=== PATIENT | female | born 1935 | race Caucasian/White ===

== ENCOUNTER 2021-05-12 15:13 | Emergency (ER) | payer MEDICARE, BC ==
[~2021-05-12] VITALS: Ht 152.4 cm; Wt 37.5 kg
--- NOTE | 2021-05-12 16:11 | RAD ---
Three-view right shoulder and two-view right humerus dated 05/12/2021. No comparison available. CLINICAL INDICATION: Pain. FINDINGS: 2 views the right shoulder show a mildly comminuted fracture of the greater tuberosity of the proxima l right humerus. There is some mild displacement of fracture fragments. Possible extension to the les ser tuberosity. The humeral neck is intact. The mid and distal humeral shaft is intact. Mild hypertro phic change of the AC joint with mild degenerative change of the glenohumeral joint. No displaced rib fracture. IMPRESSION: Comminuted, mildly displaced fracture of the proximal right humerus. Electronically signed by: Mitch Avendano MD (05/12/2021 4:08 PM) [id number]
--- NOTE | 2021-05-12 16:13 | RAD ---
Single view pelvis, two-view right hip and two-view right femur dated 05/12/2021. No comparison available. Clinical data indication: Pain after fall. FINDINGS: Single AP view pelvis shows normal bony alignment. No displaced fracture. Mild hypertrophic change of the right hip joint. No periostitis or bone destruction. Pelvic ring is intact. There are moderate s pondylotic changes the lower lumbar spine. 2 views the right femur show normal bony alignment. No displaced fracture. No periostitis or bone kristen truction. No acute osseous or articular abnormality. IMPRESSION: No acute radiographic abnormality. Electronically signed by: Mitch Avendano MD (05/12/2021 4:11 PM) [id number]
[2021-05-12] MEDS ORDERED: HYDROcodone/APAP 5/325MG 1 TAB TABLET PO ONE (16:30)
[2021-05-12 16:58] VITALS: BP 126/78
[2021-05-12] MEDS ORDERED: HYDR-2759 PO (16:59)
--- NOTE | 2021-05-12 16:59 | PHYS DOC ---
Past History Past Medical History: Hypertension, Hypothyroid Past Surgical History: Appendectomy, Other Additional Past Surgical Histo: D&C Alcohol Use: None General Adult EDM: Chief Complaint: MECHANICAL FALL HPI: HPI: 85-year-old female presents after fall at home. The patient took some things down to her basement and while she was walking across the floor she tripped and fell. She fell onto her right side. She did not hit her head. She did not lose consciousness. She has right upper arm pain and right hip pain. The patient was able to get up off the floor and walk back up the stairs under her own power. She called her neighbor for help who brought her to the emergency room. The patient currently is mostly complaining of right upper arm pain. Abduction is most painful. Patient denies any other significant complaints. Review of Systems: Review of Systems: Constitutional: Denies fever or chills Eyes: Denies change in visual acuity HENT: Denies nasal congestion or sore throat Respiratory: Denies cough or shortness of breath Cardiovascular: Denies chest pain or edema GI: Denies abdominal pain, nausea, vomiting, bloody stools or diarrhea : Denies dysuria Musculoskeletal: Right shoulder pain, right hip pain Integument: Denies rash Neurologic: Denies headache, focal weakness or sensory changes Endocrine: Denies polyuria or polydipsia Lymphatic: Denies swollen glands Psychiatric: Denies depression or anxiety Current Medications: Current Meds: Current Medications Medications (Trade) Dose Ordered Sig/Rowdy Start Time Stop Time Status Last Admin Dose Admin Acetaminophen/ Hydrocodone Bitart (Lortab 5/325) 1 tab 1X ONCE 05/12/21 16:30 05/12/21 16:38 DC Allergies: Allergies: Allergies Coded Allergies Type Severity Reaction Last Updated Verified codeine Allergy Unknown 05/12/21 Yes Physical Exam: PE: Constitutional: Well developed, well nourished, no acute distress, non-toxic appearance. [] HENT: Normocephalic, atraumatic, bilateral external ears normal, oropharynx moist, no oral exudates, nose normal. [] Eyes: PERRLA, EOMI, conjunctiva normal, no discharge. [] Neck: Normal range of motion, no tenderness, supple, no stridor. [] Cardiovascular:Heart rate regular rhythm, no murmur [] Lungs & Thorax: Bilateral breath sounds clear to auscultation [] Abdomen: Bowel sounds normal, soft, no tenderness, no masses, no pulsatile masses. [] Skin: Warm, dry, no erythema, no rash. [] Back: No tenderness, no CVA tenderness. [] Extremities: Mild tenderness over the right lateral hip. Tenderness over the right lateral shoulder. Range of motion deferred due to discomfort. [] Neurologic: Alert and oriented X 3, normal motor function, normal sensory function, no focal deficits noted. [] Psychologic: Affect normal, judgement normal, mood normal. [] Current Patient Data: Vital Signs: Vital Signs Date Time Temp Pulse Resp B/P (MAP) Pulse Ox O2 Delivery O2 Flow Rate FiO2 05/12/21 15:24 98.0 72 16 130/78 (95) 98 Room Air EKG: EKG: [] Radiology/Procedures: Radiology/Procedures: [] Impressions: Three-view right shoulder and two-view right humerus dated 05/12/2021. No comparison available. CLINICAL INDICATION: Pain. FINDINGS: 2 views the right shoulder show a mildly comminuted fracture of the greater tuberosity of the proximal right humerus. There is some mild displacement of fracture fragments. Possible extension to the lesser tuberosity. The humeral neck is intact. The mid and distal humeral shaft is intact. Mild hypertrophic change of the AC joint with mild degenerative change of the glenohumeral joint. No displaced rib fracture. IMPRESSION: Comminuted, mildly displaced fracture of the proximal right humerus. Electronically signed by: Mitch Avendano MD (05/12/2021 4:08 PM) [id number] DICTATED AND SIGNED BY: MITCH AVENDANO MD DATE: 05/12/21 1607 CC: EMIGDIO DAVILA DO; ADNNA DUFFY MD ~MTH0 0 Single view pelvis, two-view right hip and two-view right femur dated 05/12/2021. No comparison available. Clinical data indication: Pain after fall. FINDINGS: Single AP view pelvis shows normal bony alignment. No displaced fracture. Mild hypertrophic change of the right hip joint. No periostitis or bone destruction. Pelvic ring is intact. There are moderate spondylotic changes the lower lumbar spine. 2 views the right femur show normal bony alignment. No displaced fracture. No periostitis or bone destruction. No acute osseous or articular abnormality. IMPRESSION: No acute radiographic abnormality. Electronically signed by: Mitch Avendano MD (05/12/2021 4:11 PM) [id number] DICTATED AND SIGNED BY: MITCH AVENDANO MD DATE: 05/12/211609 CC: EMIGDIO DAVILA DO; DANNA DUFFY MD ~MTH0 0 Heart Score: C/O Chest Pain: N/A Risk Factors: Risk Factors: DM, Current or recent (<one month) smoker, HTN, HLP, family history of CAD, obesity. Risk Scores: Score 0 - 3: 2.5% MACE over next 6 weeks - Discharge Home Score 4 - 6: 20.3% MACE over next 6 weeks - Admit for Clinical Observation Score 7 - 10: 72.7% MACE over next 6 weeks - Early Invasive Strategies Course & Med Decision Making: Course & Med Decision Making Pertinent Labs and Imaging studies reviewed. (See chart for details) The patient has a mildly displaced fracture of the right humerus over the greater tuberosity. It is comminuted. See official report for more details. We will place the patient in a sling and have her follow-up with orthopedics. I will discharge her with a prescription for War 5/325. I have advised that she stay with family or have someone check on her if she is going back home alone. She is stable for discharge at this time. [] Joseph Disclaimer: Joseph Disclaimer: This electronic medical record was generated, in whole or in part, using a voice recognition dictation system. Departure Departure: Impression: Primary Impression: Closed right humeral fracture Qualified Codes: S42.251A - Displaced fracture of greater tuberosity of right humerus, initial encounter for closed fracture Disposition: HOME / SELF CARE / HOMELESS Condition: STABLE Referrals: DANNA DUFFY MD (PCP) Patient Instructions: Humerus Fracture, Treated with Immobilization, [id number] Additional Instructions: You need to follow-up with orthopedics next week. You can call the [facility] at: [phone]. They can make a follow-up appointment. Scripts Hydrocodone/Acetaminophen (Hydrocodone-Acetamin 5-325 mg) 1 Each Tablet 1 EACH PO Q4-6HRS PRN for PAIN, #14 TAB Prov: EMIGDIO DAVILA DO 05/12/21 EMIGDIO DAVILA DO May 12, 2021 16:59
== END 2021-05-12 17:12 | disposition home or self-care (01) ==
LOC: ER 15:13
DX: S42.301A Unspecified fracture of shaft of humerus, right arm, initial encounter for closed fracture (principal); M25.551 Pain in right hip; I10 Essential (primary) hypertension; Z88.5 Allergy status to narcotic agent; W01.0XXA Fall on same level from slipping, tripping and stumbling without subsequent striking against object, initial encounter; Y93.01 Activity, walking, marching and hiking; Y92.89 Other specified places as the place of occurrence of the external cause; Y99.8 Other external cause status
CPT/HCPCS: 29240; 73030; 73060; 73502; 73552; 99284-25